=== PATIENT | female | born 1935 | race Two or more races ===

== ENCOUNTER 2020-04-05 17:14 | Emergency (ER) | payer SELFPAY ==
[~2020-04-05] VITALS: Ht 157.5 cm; Wt 57.1 kg
[2020-04-05] MEDS ORDERED: SODIUM CHLORIDE FLUSH 10ML SYR IVF ONE (19:00)
--- NOTE | 2020-04-05 19:44 | NUR ---
PT BIB POV FOR GLF WITH L CHEEK PAIN AND SWELLING. PT ALSO REPORTS MILD LEDBETTER. PT DENIES LOC OR BEING ON ANY BLOOD THINNERS. PT HAS FAMILY MEMBER AT BS. [facility] WILL CONTINUE TO MONITOR.
[2020-04-05 20:13] VITALS: BP 204/92
[2020-04-05 20:45] LABS: ALBUMIN 4.1 g/dL (3.4-5.0); ANION GAP 5 mmol/L (5-15); CALCIUM 9.1 mg/dL (8.5-10.1); CHLORIDE 99 mmol/L (98-107)
[2020-04-05 20:47] LABS: BASOPHILS % (AUTO) 0 % (0-1); EOSINOPHILS % (AUTO) 0 % (1-7); LYMPHOCYTES % (AUTO) 33 % (22-44); MEAN CORPUSCULAR HEMOGLOBIN 30.6 pg (27.0-34.8); MEAN CORPUSCULAR HGB CONC 33.8 g/dL (32.4-35.8); MEAN PLATELET VOLUME 8.4 fL (7.4-10.4); MONOCYTES % (AUTO) 6 % (2-9); NEUTROPHILS % (AUTO) 61 % (42-75); PLATELET COUNT 254 x10^3/uL (130-400); RED BLOOD COUNT 4.57 x10^6/uL (3.82-5.3); RED CELL DISTRIBUTION WIDTH 14.4 % (9.6-15.2)
[2020-04-05 20:52] LABS: ALANINE AMINOTRANSFERASE 20 U/L (12-78); ALKALINE PHOSPHATASE 111 U/L (45-117); BILIRUBIN,TOTAL 0.9 mg/dL (0.2-1.0); CREATININE 0.88 mg/dL (0.55-1.02); TOTAL PROTEIN 8.4 g/dL (6.4-8.2)
[2020-04-05 20:59] LABS: MD NO
[2020-04-05] MEDS ORDERED: INSULIN REGULAR 100 UNITS/ML, 3ML VIAL SQ-INSULIN ONE (21:00)
[2020-04-05] MEDS ORDERED: INSULIN SINGLE DOSE, ER ONE (21:16)
== END 2020-04-05 22:58 | disposition home or self-care (01) ==
LOC: ED 22:10
DX: S00.83XA Contusion of other part of head, initial encounter (principal); M25.512 Pain in left shoulder; I10 Essential (primary) hypertension; E11.65 Type 2 diabetes mellitus with hyperglycemia; W01.0XXA Fall on same level from slipping, tripping and stumbling without subsequent striking against object, initial encounter; Y93.89 Activity, other specified; Y92.488 Other paved roadways as the place of occurrence of the external cause; Y99.8 Other external cause status
CPT/HCPCS: 36415; 70486; 73030; 80053; 82962; 84484; 85025; 99285; J1815

== ENCOUNTER 2020-04-06 00:39 | Inpatient (IN) | payer MEDICARE, OTHER ==
[~2020-04-06] VITALS: Ht 154.9 cm; Wt 58.0 kg
[2020-04-06] MEDS ORDERED: OMNIPAQUE 350 MG/ML, 100ML BOTTLE ONE (00:45)
--- NOTE | 2020-04-06 00:49 | NUR ---
Code Neuro called @ 0043 Called Neurology @ 0046 Neurology called back @ [address] Chicas
[2020-04-06] MEDS ORDERED: LORazepam 2 MG/ML, 1ML IVPush ONE (01:00)
[2020-04-06] MEDS ORDERED: LORazepam 2 MG/ML, 1ML ONE (01:00)
[2020-04-06 01:30] LABS: BASOPHILS % (AUTO) 0 % (0-1); EOSINOPHILS % (AUTO) 0 % (1-7); LYMPHOCYTES % (AUTO) 32 % (22-44); MEAN CORPUSCULAR HEMOGLOBIN 30.3 pg (27.0-34.8); MEAN CORPUSCULAR HGB CONC 33.7 g/dL (32.4-35.8); MONOCYTES % (AUTO) 9 % (2-9); NEUTROPHILS % (AUTO) 59 % (42-75); PLATELET COUNT 265 x10^3/uL (130-400); RED BLOOD COUNT 4.42 x10^6/uL (3.82-5.3); RED CELL DISTRIBUTION WIDTH 14.8 % (9.6-15.2)
[2020-04-06 01:31] LABS: MD NO
[2020-04-06 01:37] LABS: ALANINE AMINOTRANSFERASE 17 U/L (12-78); ALBUMIN 3.8 g/dL (3.4-5.0); ANION GAP 6 mmol/L (5-15); CALCIUM 8.8 mg/dL (8.5-10.1); CHLORIDE 100 mmol/L (98-107); CREATININE 0.78 mg/dL (0.55-1.02)
[2020-04-06 01:41] LABS: ALKALINE PHOSPHATASE 86 U/L (45-117); TOTAL PROTEIN 7.7 g/dL (6.4-8.2); TROPONIN I 0.025 ng/mL (0.000-0.045)
[2020-04-06 02:05] LABS: INTERNATIONAL NORMALIZED RATIO 1.02 (0.93-1.1); PROTHROMBIN TIME 10.8 Seconds (9.6-11.5)
--- NOTE | 2020-04-06 02:46 | NUR ---
PT RESTING IN BED, AT BEDSIDE. PROVIDED WITH WARM BLANKETS PER REQUEST. DENIES ANY FURTHER NEEDS, QUESTIONS, OR CONCERNS AT THIS TIME, CALL LIGHT IN REACH.
[2020-04-06] MEDS ORDERED: SODIUM CHLORIDE 0.9% 1,000 ML IV SCH (03:00)
[2020-04-06] MEDS ORDERED: ACETAMINOPHEN 325 MG TABLET PO PRN (03:00)
--- NOTE | 2020-04-06 03:30 | NUR ---
PT CONTINUES IN BED, AT BEDSIDE. PROVIDED WITH MORE WARM BLANKETS. DENIES ANY NEEDS OR CONCERNS. CALL LIGHT IN REACH.
[2020-04-06] MEDS ORDERED: POTASSIUM CHLORIDE 20 MEQ TAB.ER.PRT PO ONE (04:00)
[2020-04-06 04:10] LABS: TROPONIN I < 0.015 ng/mL (0.000-0.045)
--- NOTE | 2020-04-06 04:45 | NUR ---
RESTING IN BED, DENIES ANY NEEDS OR CONCERNS AT THIS TIME.
--- NOTE | 2020-04-06 05:38 | NUR ---
PT RESTING, RESPIRATIONS EVEN AND UNLABORED. CONTINUES AT BEDSIDE. CALL LIGHT IN REACH.
[2020-04-06] MEDS ORDERED: ONDANSETRON 2MG/ML, 2ML ONE (06:01)
--- NOTE | 2020-04-06 06:13 | NUR ---
PT HAD ONE EMESIS, AND WAS INCONTINENT OF URINE. ERP NOTIFIED. ZOFRAN ORDERED AND ADMINISTERED. ALL LINENS CHANGED. PT REPOSITIONED IN BED. REATTACHED TO MONITORS. DENIES ANY NEEDS, PT SHOWS NO FURTHER SIGNS OF DISTRESS OR NEED. CALL LIGHT IN REACH.
[2020-04-06] MEDS ORDERED: ONDANSETRON 2MG/ML, 2ML IVPush ONE (07:00)
--- NOTE | 2020-04-06 07:06 | NUR ---
REPORT RECEIVED FROM STEPHEN BINGHAM. PT STILL ON ED [facility] [place]. PT SLEEPING, RESPONSIVE TO PAIN, NOT FOLLOWING COMMANDS, UNKNOWN NEURO BASELINE. MONITOR SHOWS 3 CONSISTENT READINGS W/ SYSTOLIC BP >190 SINCE 0600, CUFF IN GOOD POSITION. NO BP MEDS ORDERED. FSBS 343 AT THIS TIME. INSULIN PEN ORDERED FROM PHARMACY. WILL CONTACT HOSPITALIST TO ADDRESS CONCERNS.
[2020-04-06] MEDS ORDERED: LABETALOL 5MG/ML, 20ML ONE (07:12)
[2020-04-06] MEDS ORDERED: LABETALOL 5MG/ML, 20ML IVPush ONE (07:30)
--- NOTE | 2020-04-06 07:48 | NUR ---
VERIFIED W/ HAFSA MORGAN TO GIVE 8 UNITS OF INSULIN WHILE PT IS NPO. NPO SAMARA CORDOVA.
[2020-04-06] MEDS ORDERED: POTASSIUM CHLORIDE 40 MEQ in SODIUM CHLORIDE 0.9% 500 ML IV ONE (08:00)
[2020-04-06] MEDS: INSULIN LISPRO 100 UNITS/ML, PEN SQ-INSULIN SCH ×4 (08:01→21:27)
--- NOTE | 2020-04-06 08:15 | NUR ---
HOSPITAL BED REQ FROM [facility].
[2020-04-06 08:39] LABS: TROPONIN I < 0.015 ng/mL (0.000-0.045)
--- NOTE | 2020-04-06 09:15 | NUR ---
PT TO MRI
--- NOTE | 2020-04-06 10:48 | NUR ---
PT TRANSPORTED TO HOSPITAL BED W/O INCIDENT. [place] SET UP. PT RESTING W/ CALL LIGHT IN REACH AND SIDE RAILS UPX2. RESP EVEN AND UNLABORED, NADN. AWAITING ADMIT.
--- NOTE | 2020-04-06 11:00 | NUR ---
PTS NEETA FREIRE [phone] OKAY TO CALL W/ UPDATES.
--- NOTE | 2020-04-06 11:16 | NUR ---
PT DESAT TO 88% RA WHILE SLEEPING. PLACED ON 2L NC W/ DESIRED EFFECT.
--- NOTE | 2020-04-06 11:29 | NUR ---
ATTEMPT TO CALL REPORT. RN UNAVAILABLE.
--- NOTE | 2020-04-06 11:46 | NUR ---
ATTEMPT TO CALL REPORT. RN UNAVAILABLE.
--- NOTE | 2020-04-06 11:53 | NUR ---
REPORT GIVEN TO ARACELI BINGHAM. PT IS READY FOR TRANSPORT AT THIS TIME. RESP EVEN AND UNLABORED, MARYELLEN.
[2020-04-06 12:27] VITALS: BP 113/48
[2020-04-06 18:58] LABS: MICROSCOPIC INDICATED
[2020-04-06 22:22] VITALS: BP 137/71
[2020-04-07 03:00] VITALS: BP 154/69
[2020-04-07 06:05] LABS: ANION GAP 4 mmol/L (5-15); CHLORIDE 105 mmol/L (98-107)
[2020-04-07 06:09] LABS: BASOPHILS % (AUTO) 0 % (0-1); EOSINOPHILS % (AUTO) 1 % (1-7); LYMPHOCYTES % (AUTO) 40 % (22-44); MEAN CORPUSCULAR HEMOGLOBIN 30.8 pg (27.0-34.8); MEAN CORPUSCULAR HGB CONC 34.2 g/dL (32.4-35.8); MEAN PLATELET VOLUME 9.2 fL (7.4-10.4); MONOCYTES % (AUTO) 6 % (2-9); NEUTROPHILS % (AUTO) 52 % (42-75); PLATELET COUNT 167 x10^3/uL (130-400); RED CELL DISTRIBUTION WIDTH 15.1 % (9.6-15.2)
[2020-04-07 06:32] LABS: MD NO
[2020-04-07 06:55] LABS: CREATININE 0.84 mg/dL (0.55-1.02)
[2020-04-07 07:43] VITALS: BP 143/55
[2020-04-07] MEDS: INSULIN LISPRO 100 UNITS/ML, PEN SQ-INSULIN SCH ×4 (08:46→21:21)
[2020-04-07] MEDS: AMLODIPINE 2.5 MG TABLET PO SCH (10:47)
[2020-04-07 12:27] VITALS: BP 136/75
[2020-04-07] MEDS: metFORMIN 850 MG TABLET PO SCH (16:58)
[2020-04-07 20:55] VITALS: BP 144/73
[2020-04-07] MEDS: ATORVASTATIN 20 MG TABLET PO SCH (21:21)
[2020-04-08 00:59] VITALS: BP 128/66
[2020-04-08] MEDS: MELATONIN 5 MG TABLET PO SCH ×2 (01:20→23:06)
[2020-04-08 07:53] VITALS: BP 120/70
[2020-04-08] MEDS: AMLODIPINE 2.5 MG TABLET PO SCH (08:37)
[2020-04-08] MEDS: metFORMIN 850 MG TABLET PO SCH ×2 (08:37→17:50)
[2020-04-08] MEDS: INSULIN LISPRO 100 UNITS/ML, PEN SQ-INSULIN SCH ×4 (08:38→23:04)
[2020-04-08 13:35] VITALS: BP 109/70
[2020-04-08 21:07] VITALS: BP 144/77
[2020-04-08] MEDS: ATORVASTATIN 20 MG TABLET PO SCH (23:06)
[2020-04-09 02:59] VITALS: BP 126/82
[2020-04-09 07:39] VITALS: BP 131/78
[2020-04-09] MEDS: AMLODIPINE 2.5 MG TABLET PO SCH (08:02)
[2020-04-09] MEDS: metFORMIN 850 MG TABLET PO SCH (08:02)
[2020-04-09] MEDS: INSULIN LISPRO 100 UNITS/ML, PEN SQ-INSULIN SCH ×2 (08:03→12:45)
[2020-04-09] MEDS ORDERED: METF850T PO (10:57)
[2020-04-09] MEDS ORDERED: AMLO2.5T5 PO (10:57)
[2020-04-09] MEDS ORDERED: ATOR20TA37 PO (10:57)
[2020-04-09 12:32] VITALS: BP 103/51
== END 2020-04-09 13:35 | disposition home health service (06) | DRG 638 ==
LOC: ED 01:09 → INTOOBSV 02:35 → OBSVTOIN 02:35 → EDIP 02:35 → 5SO 12:01
PROVIDERS: ADMIT Family Medicine; ATTEND Family Medicine
DX: E11.65 Type 2 diabetes mellitus with hyperglycemia (principal); E87.1 Hypo-osmolality and hyponatremia; E87.6 Hypokalemia; F03.90 Unspecified dementia, unspecified severity, without behavioral disturbance, psychotic disturbance, mood disturbance, and anxiety; I10 Essential (primary) hypertension; I35.8 Other nonrheumatic aortic valve disorders; Z86.73 Personal history of transient ischemic attack (TIA), and cerebral infarction without residual deficits; Z91.14 Patient's other noncompliance with medication regimen
CPT/HCPCS: 36415; 70450; 70496; 70498; 70551; 71045; 80048; 80053; 81001; 82962; 83036; 83735; 84439; 84443; 84484; 85025; 85610; 93005; 93306; G0378; J2405; J3480; Q9967; 92523-GN; J1815; J2060; J7030; J7040